=== PATIENT | female | born 1985 | race Caucasian/White ===

== ENCOUNTER → 2020-08-29 | Outpatient (CLI) | payer BC ==
[~2020-08-29] MED LIST: CEPH250A; DIAZ5; DOCU100; HYDACE5; HYDMOR2; IBUP800 PO; LACT10SY PO; METPRE4DP PO; PROP60; RANI150 PO; RXHYDACE PO; TRIA80TC; VALD20
== END | disposition home or self-care (01) ==
LOC: LAB SHORT 16:59
DX: R30.0 Dysuria (principal)
CPT/HCPCS: 87077; 87086; 87186

== ENCOUNTER → 2024-06-27 | Outpatient (CLI) | payer BC, OTHER ==
[2024-07-06 11:16] LABS: HPV HIGH RISK BY TMA Not Detected; HPV SOURCE Cervical
== END ==
LOC: LAB SHORT 17:03 → LAB 17:03
PROVIDERS: Obstetrics & Gynecology
DX: Z01.419 Encounter for gynecological examination (general) (routine) without abnormal findings (principal)
CPT/HCPCS: 87624; G0123